=== PATIENT | female | born 1975 | race Hispanic/Latino ===

== ENCOUNTER 2024-10-05 19:46 | Emergency (ER) | payer BC, SELFPAY ==
[2024-10-05 19:49] VITALS: BP 124/80
[2024-10-05 20:32] LABS: Urine Albumin Trace (Neg - Trace); Urine Bilirubin Negative (Negative); Urine Character Clear (Clear); Urine Color Amber; Urine Glucose Negative (Negative); Urine Ketone Trace (Negative); Urine Leukocyte Trace (Negative); Urine Nitrite Negative (Negative); Urine Occult Blood 1+ (Negative); Urine Urobilinogen Negative (Neg - 1+)
[2024-10-05 20:54] LABS: Urine Squamous Cell >30 /LPF (Few)
[2024-10-05 20:55] LABS: Urine Bacteria Moderate (Negative); Urine Mucus Few; Urine Red Blood Cell 0-2 /HPF (0-2); Urine White Cell 0-2 /HPF (0-5)
[2024-10-05 22:03] VITALS: BMI 24.2
--- NOTE | 2024-10-05 22:04 | ED.GENMED ---
History of Present Illness
<KT Albarran - Last Filed: 10/06/24 01:50>
General
Chief Complaint: Flank Pain
Source: patient
Exam Limitations: none
Time Seen by Provider: 10/05/24 21:51
History of Present Illness
History of Present Illness:
This is a 49 year old female that comes in with c/o right lower abd pain. States that she has this on and off for 2 weeks. Then 2 days ago the pain started to get worse. States that this pain awoke her from sleep last night and she was awoke from
3-5am. States that the pain is in the right lower abd and into the hip and she can't lift her leg up with out pain. States that she is also nauseated and did have some pressure with urination. Denies any fever, chills, chest pain, SOB, vomiting,
diarrhea, headache, dizziness, urinary burning.
Past History
<KT Albarran - Last Filed: 10/06/24 01:50>
Past History
ED Past Medical History: Psychiatric (Anxiety, Depression) and Other (Multiple sclerosis, )
ED Past Surgical History: Gynecological (LEEP)
Social History
Tobacco: Non-smoker
Alcohol: None
Drug: Marijuana
Personal:
Living: with family
Review of Systems
<KT Albarran - Last Filed: 10/06/24 01:50>
Review of Systems
All Other Systems: ROS reviewed and negative except as documented in HPI and ROS
Constitutional: Reports no symptoms; Denies fever or chills
EENT: Reports no symptoms
Respiratory: Reports no symptoms; Denies cough or trouble breathing
Cardiac: Reports no symptoms; Denies chest pain
ABD/GI: Reports abdominal pain and nausea; Denies vomiting or diarrhea
: Reports other (Urinary pressure); Denies dysuria, frequency or urgency
Musculoskeletal: Reports no symptoms
Skin: Reports no symptoms
Neurological: Reports no symptoms; Denies dizzy or headache
Psychiatric: Reports no symptoms
Phy Exam
<KT Albarran - Last Filed: 10/06/24 01:50>
General Physical Exam
General Presentation: well appearing and no apparent distress
General age: appears stated age
General Skin: warm and dry
General Habitus: normal
General Mental: alert
General Hydration: appears well hydrated
ENT Exam
ENT Exam: TM's normal, pharynx normal and neck supple
Eye Exam
Eye Exam: EOMI
Cardiovascular Exam
Cardiovascular Exam: regular rate/rhythm, no edema, no murmur and normal peripheral pulses
Pulmonary Exam
Pulmonary Exam: lungs clear, no respiratory distress, no rales, chest non tender, no crackles, no rhonchi, no wheezing and no cough
Gastrointestinal Exam
Gastrointestinal Exam: normal bowel sounds, soft, no organomegaly, no pulsatile mass, non distended, no cva tenderness and tender (Right lower abd tenderness with papation)
Musculoskeletal Exam
Musculoskeletal Exam: full ROM and no edema
Skin Exam
Skin Exam: normal color, warm/dry, no rash and no petechia
Psychiatric Exam
Psychiatric Exam: normal mood/affect
Course
<KT Albarran - Last Filed: 10/06/24 01:50>
Orders/Labs/Results
Orders:
Orders
10/05/24 20:06
Urinalysis Urgent
Date Specimen was Collected: 10/05/24
Time Specimen was Collected: 19:53
Urine Microscopic Urgent
Date Specimen was Collected: 10/05/24
Time Specimen was Collected: 19:53
10/05/24 22:01
0.9% Sodium Chloride 1000 ml [Nss] 1,000 ml IV BOLUS
Iohexol [Omnipaque] See Protocol PO NOW STA
10/05/24 22:02
Add On- LAB Urgent
Tests Added?: HCG
10/05/24 22:09
Basic Metabolic Panel Urgent
Complete Blood Count/No Diff Urgent
HCG, Serum Qualitative Screen Urgent
Comment: ADD ON
10/06/24 00:15
CT Abd/pel W Iv And Oral Contr Urgent
Reason For Exam: Right lower abd pain
Ondansetron Injectable [Zofran] 4 mg .ROUTE .STK-MED ONE
Ondansetron Injectable [Zofran] 4 mg IV NOW STA
Abnormal Lab Results
10/05/24
20:06
Urine Ketones Trace A
(Negative)
Urine Occult Blood 1+ A
(Negative)
Ur Leukocyte Esterase Trace A
(Negative)
Urine Bacteria Moderate A
(Negative)
10/05/24 22:09
10/05/24 22:09
Urine negative for infection.
Vital Signs
Initial and Last Documented VS:
Initial Vital Signs
Temp Pulse Resp BP Pulse Ox
97.5 F 96 18 124/80 100
10/05/24 19:49 10/05/24 19:49 10/05/24 19:49 10/05/24 19:49 10/05/24 19:49
Last Documented Vital Signs
Temp Pulse Resp BP Pulse Ox
97.5 F 83 18 111/75 100
10/05/24 19:49 10/05/24 23:23 10/05/24 23:23 10/05/24 23:23 10/05/24 23:23
Demarcolt;Bartolo Hanks, DO - Last Filed: 10/05/24 22:55>
Orders/Labs/Results
Orders:
Orders
10/05/24 20:06
Urinalysis Urgent
Date Specimen was Collected: 10/05/24
Time Specimen was Collected: 19:53
Urine Microscopic Urgent
Date Specimen was Collected: 10/05/24
Time Specimen was Collected: 19:53
10/05/24 22:01
0.9% Sodium Chloride 1000 ml [Nss] 1,000 ml IV BOLUS
Iohexol [Omnipaque] See Protocol PO NOW STA
10/05/24 22:02
Add On- LAB Urgent
Tests Added?: HCG
10/05/24 22:09
Basic Metabolic Panel Urgent
Complete Blood Count/No Diff Urgent
HCG, Serum Qualitative Screen Urgent
Comment: ADD ON
10/06/24 00:15
CT Abd/pel W Iv And Oral Contr Urgent
Reason For Exam: Right lower abd pain
Ondansetron Injectable [Zofran] 4 mg .ROUTE .STK-MED ONE
Ondansetron Injectable [Zofran] 4 mg IV NOW STA
Abnormal Lab Results
10/05/24
20:06
Urine Ketones Trace A
(Negative)
Urine Occult Blood 1+ A
(Negative)
Ur Leukocyte Esterase Trace A
(Negative)
Urine Bacteria Moderate A
(Negative)
10/05/24 22:09
10/05/24 22:09
Vital Signs
Initial and Last Documented VS:
Initial Vital Signs
Temp Pulse Resp BP Pulse Ox
97.5 F 96 18 124/80 100
10/05/24 19:49 10/05/24 19:49 10/05/24 19:49 10/05/24 19:49 10/05/24 19:49
Last Documented Vital Signs
Temp Pulse Resp BP Pulse Ox
97.5 F 83 18 111/75 100
10/05/24 19:49 10/05/24 23:23 10/05/24 23:23 10/05/24 23:23 10/05/24 23:23
<KT Albarran - Last Filed: 10/06/24 01:50>
MDM/Problems Addressed
Differential Diagnosis Includes:
Appendicitis, Renal calculus, Ovarian cyst
MDM/Problems Addressed:
This is a 49 year old female that comes in with c/o right lower abd pain. States that she has had pain on and off for 2 weeks. States that in the past 2 days the pain got worse and this kept her up last night.
Will check labs, Urine and get CT scan. Will give IV fluids.
Back into see patient. Explained that the CT s negative for any renal calculus or Appendicitis. There is a slight Lumbar curvature that may be causing her pain. Patient to follow up with the Family doctor and the media services specialist for further
evaluation. Patient can use Tylenol and Ibuprofen for pain. Return with any concerns.
Chronic conditions affecting care:
NA
Acute Exacerbation and/or Progression of Chronic Illness:
NA
<KT Albarran - Last Filed: 10/06/24 01:50>
*Radiology
Radiology exam reviewed: radiology read reviewed (CT night hawk- No acute intra-abdominal pathology. NO andrade obstruction or inflammation. Appendix is normal. No hydronephrosis or nephrolithiasis. NO free air or free fluid. Gallbladder and pancreas
are unremarkable. IUD in noted. Mild left convex lumbar curvature. )
*Pulse Oximetry
Patient hypoxic: no
*EKG
Interpreted by ED Provider?: NA
Rate: EKG- N/A
*Hand Former Interpretation
Rate: Hand Former- N/A
*Critical Care Note
Total Time (30-74mins, 75-104mins- exclusive of procedures): Not Applicable
ED Attending Note
<KT Albarran - Last Filed: 10/06/24 01:50>
-
Portions of this chart may have been created with voice recognition software.� Occasional wrong word or��sound alike� substitutions may have occurred due to the inherent limitations of voice recognition software.
<Bartolo Billy Aissatouiron, DO - Last Filed: 10/05/24 22:55>
ED Attending Note
Patient seen and examined by attending physician: Yes
I performed the substantive portion of visit, reviewed & personally made and approve the management plan that is documented in note by myself or KI.: Yes
ED Attending Note:
I evaluated the patient at bedside. White count is normal. Mild to moderate right lower quadrant tenderness but she also has discomfort in the right inguinal region that worsens when she flexes. CT pending.
Discharge Plan
Departure
Patient Disposition: Home (Routine Discharge)
Date of Disposition: 10/06/24
Time of Disposition: 01:45
Patient with high blood pressure during this ER visit?: No
Condition: Good
Covid-19: Not Applicable
Discharge Problem:
Right sided abdominal pain, Low back pain
Instructions: Low back pain - ED discharge instructions, Abdominal Pain
Prescriptions:
No Action
prednisone 10 MG tablet
10 mg PO .TAPER Qty: 30 0RF
Rx Instructions:
Take 40mg daily x3days, 30mg daily x3days,
20mg daily x3days, 10mg daily x3days.
Referrals:
Jose G Whittaker MD [Active] - As needed
Wenceslao Valdovinos MD [Family Provider] - Follow up in 2-3 days
Activity Restrictions/Additional Instructions:
As discussed, your blood work is normal and your urine is negative for infection. Please increase your water intake to 8-8oz glasses daily. Your CT is negative for any renal calculus, appendicitis or bowel obstruction. However, it does show a slight
curvature of the lumbar spine. This may be due to the nerves that wrap around to the abd that are causing your discomfort. You may use Tylenol and Ibuprofen for pain. Heat or ice to the back. Follow up with the family doctor for recheck. You have
also been given the name of an personal protection specialist for further evaluation. IF YOU HAVE ANY OTHER CONCERNS PLEASE RETURN TO THE EMERGENCY ROOM.
Interventions
Interventions:
*Risk Screen - Suicide Last Done: 10/05/24 19:49
*Neglect/Abuse Screening Last Done: 10/05/24 19:49
*ED COVID-19 Vaccine History Last Done: 10/05/24 23:31
XN-Vsbhcr-Kkviuqyprb Assessment Last Done: 10/05/24 22:25
ED-Female Genitourinary Assessment Last Done: 10/05/24 22:25
Discharge Date and Time
Print Language: GUAT[place]AL[place]
[2024-10-05] MEDS: NSS 1000 IV (22:10)
[2024-10-05] MEDS: OMNIPAQUE 50 ML PO (22:18)
[2024-10-05 22:20] LABS: Hematocrit 40.6 % (37.0-47.0); Hemoglobin 14.2 g/dL (12.0-16.0); Mean Corpuscular Hgb 30.1 pg (27.0-31.0); Mean Platelet Volume 8.8 fL (7.4-10.4); Platelet Count 234 10^3/uL (130-400); Red Blood Cell Count 4.72 10^6/uL (4.20-5.40); White Blood Cell Count 6.7 10^3/uL (4.8-10.8)
[2024-10-05 22:33] LABS: Blood Urea Nitrogen 13 mg/dl (7-17); Calcium 9.1 mg/dl (8.4-10.2); Carbon Dioxide 29 mmol/L (22-30); Chloride 100 mmol/L (98-107); Estimated Creatinine Clearance 87 ml/min; Glucose 84 mg/dl (70-99); Potassium 3.9 mmol/L (3.5-5.1); Sodium 136 mmol/L (135-145); eGFR > 60.00
[2024-10-05 22:36] LABS: HCG, Serum Qualitative Screen Negative
[2024-10-05 23:23] VITALS: BP 111/75
[2024-10-06] MEDS: ZOFRAN 4 MG IV (00:15)
[2024-10-06 01:57] VITALS: BP 93/64
== END 2024-10-06 01:58 | disposition home or self-care (01) ==
LOC: EMR 19:46
PROVIDERS: Emergency Medicine; EMERGENCY PHYSICIAN Emergency Medicine; FAMILY PHYSICIAN Internal Medicine
DX: R10.31 Right lower quadrant pain (principal); F41.9 Anxiety disorder, unspecified; G35 Multiple sclerosis
CPT/HCPCS: 99284; 96374; 96361; 74177; 80048; 81003; 81015; 84703; 85027; Q9967